=== PATIENT | male | born 1990 | race Two or more races ===

== ENCOUNTER 2017-06-10 20:07 | Emergency (ER) | payer MEDICAID ==
[2017-06-10] MEDS ORDERED: Triple Antibiotic 0.94 gm Pkt TP STA (21:32)
[2017-06-10] MEDS ORDERED: Bacitracin pkt 1 gm Pkt TP ONE (21:41)
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
== END 2017-06-10 21:35 | disposition home or self-care (01) ==
LOC: ER 20:07
DX: S81.041A Puncture wound with foreign body, right knee, initial encounter (principal); X58.XXXA Exposure to other specified factors, initial encounter; Y93.89 Activity, other specified; Y92.89 Other specified places as the place of occurrence of the external cause; Y99.8 Other external cause status
CPT/HCPCS: 99284; 96372; 73560; 73590; Z7610; J0696; Z7502